=== PATIENT | female | born 1995 | race Caucasian/White ===

== ENCOUNTER 2023-07-12 16:31 | Emergency (ER) | payer MEDICAID, SELFPAY ==
[2023-07-12 17:06] VITALS: BP 116/64; PULSE 68; RESP 16; TEMP 37; O2SAT 98; BMI 34.7
[2023-07-12 18:04] LABS: IDNOW Serial# 08D9AD1C; Strep A Nucleic Acid Negative (Negative)
[2023-07-12 18:05] LABS: COVID-19 Test Negative (Negative); IDNOW Serial# BCCEAD1C
--- NOTE | 2023-07-12 19:31 | ED_ITS ---
HPI - General Adult General Chief complaint: General Medical Stated complaint: sore throat Time Seen by Provider: 07/12/23 18:57 Source: patient Mode of arrival: ambulatory History of Present Illness HPI narrative: 27-year-old female who reports cough, sore throat, nasal congestion and also reports right flank/hip pain in endorses the history of kidney infections. Related Data Allergies Allergy/AdvReac Type Severity Reaction Status Date / Time No Known Allergies Allergy Unverified 05/23/20 18:47 [No Known Allergies*] Review of Systems Review of Systems: Pertinent positives and negatives as stated in [facility] Past Medical History Source: nursing notes reviewed Social History Social History Advance Directives: No Advance Directives Information Provided: No Physical Exam ED Vital Signs: Vital Signs - 24 hr 07/12/23 17:06 Temperature 98.6 F Pulse Rate 68 Respiratory Rate 16 Blood Pressure 116/64 Pulse Oximetry 98 Oxygen Delivery Method Room Air BMI result Body Mass Index 34.7 VITAL SIGNS: Reviewed. GENERAL: Well developed, well nourished, in no acute distress. HEAD: Normocephalic/atraumatic EYES: PERRLA, EOMI EARS: Ext canals without abnormality, TMs non-bulging and non-erythematous NOSE: Nares patent bilateral OROPHARYNX: no oral lesions noted, posterior pharynx clear and non-erythematous without noted tonsillar enlargement/erythema/exudates NECK: Supple, no adenopathy LUNGS: Normal breath sounds. No adventitious sounds or accessory muscle use. SpO2<98> CARDIOVASCULAR: Regular rate and rhythm without noted murmurs ABDOMEN: Soft, non-tender, non-distended with bowel sounds. MUSCULOSKELETAL: No tenderness, deformities, or effusions noted on gross inspection. EXTREMITIES: No cyanosis, clubbing or edema. SKIN: Inspection of the skin reveals no rashes NEUROLOGIC: Alert and oriented x 4. Strength and sensation to light touch were grossly intact x 4. Medical Decision Making Medical Decision Making [facility] Narrative: 27-year-old female with history and clinical presentation, DDX: Viral pharyngitis, Viral illness (COVID, influenza), strep pharyngitis, UTI Reviewed all investigations and viral testing negative for COVID-19 and influenza, rapid strep testing is also negative. Patient unable to provide a urine sample and otherwise has been afebrile. Will provide patient with combination analgesics and discharged with strict recommendations follow-up with her primary care provider Differential Diagnosis Differential Diagnoses: The differential diagnosis associated with the presentation includes Please see the discussion above Admission/Observation Consideration of admission/observation: Escalation of care including admission/observation considered Please see the discussion above Lab Data MDM Lab Attestation statement: I reviewed the patient's lab results. Please see the discussion above Labs: Lab Results 07/12/23 07/12/23 Range/Units 17:43 19:27 COVID-19 (AKUA) Negative (Negative) COVID-19 Clin Com See Note Influenza Type A (REID) Negative (Negative) Influenza Type B (REID) Negative (Negative) Influenza A & B Note See Note S. pyogenes GrpA REID Negative (Negative) External Record Review External record reviewed: Outpatient record, Prior outpatient labs and Prior outpatient radiology Discharge Plan Discharge Clinical Impression: Viral pharyngitis Patient Disposition: Home, Self-Care Instructions: Pharyngitis (ED) Additional Instructions: 1. Recommend [id number] Tylenol/ibuprofen as needed for body aches, also recommend [id number] NyQuil or other [id number] cough suppressant. 2. Recommend follow-up with your primary care doctor in the morning for further evaluation of your urine. Return to the ER for any worsening symptoms.
[2023-07-12 19:50] LABS: IDNOW Serial# BCCEAD1C; Influenza A Negative (Negative); Influenza B2 Negative (Negative)
[2023-07-12] MEDS: Ibuprofen 400 MG TABLET PO (20:36)
[2023-07-12] MEDS: Acetaminophen 325 MG TABLET 975 MG PO (20:36)
--- NOTE | 2023-07-12 20:40 | PC.NURSE ---
medication administered per provider order. pt c/o 10 pain at this time. will reassess pain level shortly.
--- NOTE | 2023-07-12 20:49 | PC.NURSE ---
urine obtained and sent to lab by [employer] Backpack.
[2023-07-12 20:57] LABS: Appearance Urine Cloudy; Color Urine Yellow; Glucose Urine UA Negative (Negative); Leukocyte Esterase Urine Small (1+) (Negative); Nitrite Urine Negative (Negative); Specific Gravity - Urine 1.025 (1.005-1.025); UMIC TRIGGER UACC YES; Urine Blood Negative (Negative); Urine Ketones Trace mg/dL (Negative); Urine Protein Negative (Neg-Trace)
[2023-07-12 21:02] LABS: Bacteria Urine 4+ (None Seen); Hyaline Casts Urine 0-2 /LPF (0-2); RBC Urine 0-2 /HPF (0-2); Squamous Epithelial Cell Urine >20 /HPF (0-2); UACC Culture Trigger YES
== END 2023-07-12 22:08 | disposition home or self-care (01) ==
PROVIDERS: Emergency Provider Student in an Organized Health Care Education/Training Program
DX: J02.9 Acute pharyngitis, unspecified (principal); R05.9 Cough, unspecified; R10.9 Unspecified abdominal pain; Z11.52 Encounter for screening for COVID-19; Z20.822 Contact with and (suspected) exposure to COVID-19; Z79.899 Other long term (current) drug therapy
CPT/HCPCS: 81001; 87086; 87088; 87502; 87635; 87651; 99283

== ENCOUNTER 2024-01-04 20:24 | Emergency (ER) | payer MEDICAID, SELFPAY ==
[2024-01-04 22:12] VITALS: BP 137/88; PULSE 52; RESP 18; TEMP 37.3; O2SAT 100; BMI 34.7
[2024-01-04] MEDS: Ondansetron ODT 4 MG TAB.RAPDIS TRANSLINGU (22:21)
--- NOTE | 2024-01-04 22:21 | PC.NURSE ---
pt medicated in triage
[2024-01-04 22:32] LABS: MANUAL DIFF FLAG NO
[2024-01-04 22:34] LABS: Basophils Absolute Auto 0.1 X10*3/uL (0.0-0.2); Basophils Percent Auto 0.3 % (0-2); Hematocrit 46.5 % (37.0-47.0); Hemoglobin 16.1 g/dl (12.0-16.0); Imm Gran Abs Auto 0.07 X10*3/uL (0.00-0.03); Imm Gran Pct Auto 0.4 % (0.0-0.4); Lymphocytes Absolute Auto 1.4 X10*3/uL (1.2-4.9); Lymphocytes Percent Auto 8.2 % (20-40); Mean Corpuscular HGB Conc 34.6 g/dl (31.0-35.0); Mean Corpuscular Hemoglobin 30.9 pg (27.0-33.0); Mean Corpuscular Volume 89.3 fL (80.0-98.0); Mean Platelet Volume 12.3 fL (9.4-12.3); Monocytes Absolute Auto 0.3 X10*3/uL (0.1-1.2); Monocytes Percent Auto 1.9 % (2-11); Neutrophils Absolute Auto 15.6 x10*3/uL (2.0-8.3); Neutrophils Percent Auto 89.2 % (45-73); Platelet Count 217 X10*3/uL (160-400); Red Blood Count 5.21 X10*6/uL (4.20-5.50); Red Cell Distribution Width 12.1 % (11.0-16.0); White Blood Count 17.5 X10*3/uL (4.8-10.8)
[2024-01-04 22:47] LABS: COVID-19 Test Negative (Negative); IDNOW Serial# 58CA691E
[2024-01-04 22:49] LABS: Alanine Aminotransferase 11 U/L (0-31); Albumin Level 4.8 g/dL (3.5-5.0); Alkaline Phosphatase 111 U/L (39-117); Anion Gap 19 (12-20); Aspartate Amino Transferase 14 U/L (5-31); Bilirubin Total 0.5 mg/dL (0.0-1.0); Blood Urea Nitrogen 7 mg/dL (9-16); Calcium 9.8 mg/dL (8.4-10.2); Carbon Dioxide 22 mmol/L (22-29); Chloride 104 mmol/L (96-108); Creatinine Clr Calc Pharmacy 119.1; Estimated Glomerular Filt Rate > 60; Glucose Random 114 mg/dL (60-115); Lipase 10 U/L (8-78); Potassium 3.8 mmol/L (3.3-5.1); Sodium 141 mmol/L (135-145); Total Protein 8.1 g/dL (6.5-8.0)
[2024-01-04 22:56] LABS: IDNOW Serial# 08D9AD1C; Influenza A Negative (Negative); Influenza B2 Negative (Negative)
[2024-01-05 01:55] VITALS: BP 111/62; PULSE 52; RESP 18; TEMP 36.8; O2SAT 96
--- NOTE | 2024-01-05 03:25 | PC.NURSE ---
Pt ca&ox4, no signs of distress. Pt resting comfortably in bed. Pt reports n/v/d since tues @ 0900 and abdm pain 03/15. Plan of care ongoing.
--- NOTE | 2024-01-05 03:48 | ED_ITS ---
HPI - Nausea/Vomiting/Diarrhea General Chief complaint: Nausea/Vomiting/Diarrhea Stated complaint: food poisoning? Time Seen by Provider: 01/05/24 03:33 Source: patient Mode of arrival: ambulatory Limitations: no limitations History of Present Illness HPI Narrative: 28-year-old female with no significant past medical history who presents emergency department for evaluation of nausea, vomiting, diarrhea and abdominal pain with symptoms starting at 09:00 hours yesterday. Patient states that the night before she ate fried shrimp. She states she was the only person that ate the shrimp. She states that she then had at least 10 episodes of vomiting and 10 episodes of diarrhea. She states she did vomit up blood which concerned her so she came to the emergency department for evaluation. She states that she is having pain located diffusely throughout her abdomen and the pain is 7/10 at its worst. She denied fever but did have chills. She states she has a sore throat with secondary to vomiting. She feels short of breath. She denied myalgias arthralgias. Related Data Previous Rx's ?Medication ?Instructions ?Recorded acetaminophen 500 mg tablet 1,000 mg (2 x 500 mg) PO Q6H PRN 01/05/24 (Tylenol Extra Strength) fever or pain #20 tabs ondansetron 4 mg disintegrating 4 mg PO Q6-8H PRN nausea and 01/05/24 tablet vomiting #14 tabs Allergies Allergy/AdvReac Type Severity Reaction Status Date / Time No Known Allergies Allergy Verified 01/04/24 22:15 [No Known Allergies*] Review of Systems 2 Review of Systems: Yes all other systems are reviewed and are negative [facility] Past Medical History [facility] Narrative: Past medical history none: Surgical history: None. Social history: The patient does smoke cigarettes. She denies alcohol use. She smokes marijuana 2-3 times daily. Social History Social History Smoked in Last 30 Days: Yes Use of substances other than those prescribed or required for medical reasons: Yes Substance Use Type: Marijuana Advance Directives: No Advance Directives Information Provided: No Do you have a plan to hurt others: No Plan Physical Exam 2 Vital Signs: Vital Signs: Last Vital Signs Temp 98.3 F 01/05/24 04:19 Pulse 56 01/05/24 04:19 Resp 14 01/05/24 04:19 BP 119/68 01/05/24 04:19 Pulse Ox 100 01/05/24 04:19 O2 Del Method Room Air 01/05/24 04:19 BMI result Body Mass Index 34.7 Vital signs revealed bradycardia with a heart rate of 56 otherwise were unremarkable Exam: General: Awake, alert in no distress Head: Normocephalic, atraumatic EENT: PERRL, Lids normal, sclera normal, conjunctiva normal, nose normal , ears normal, throat without erythema or exudates Neck: Supple, no adenopathy Lung: breath sounds symmetric, no wheezing, rales or rhonchi Chest: symmetric movement, nontender Heart: regular rate and rhythm, normal S1, S2 no murmurs or rubs Abdomen: soft, mild to moderate diffuse tenderness, nondistended, normal bowel sounds Back: no vertebral tenderness, no CVAT Extremities: no deformities, moves all extremities symmetrically Neuro: Awake, alert, oriented, normal speech, cranial nerves intact, moves all extremities symmetrically Psych: Pleasant, cooperative Medications Administered Discontinued Medications Generic Name Dose Route Start Last Admin Trade Name Freq PRN Reason Stop Dose Admin Diphenhydramine HCl 50 mg 01/05/24 03:48 01/05/24 04:15 Diphenhydramine Hcl 50 Mg/Ml Vial IVPUSH 01/05/24 03:49 50 mg ONCE STA Administration Sodium Chloride 1,000 mls @ 999 mls/hr 01/05/24 03:48 01/05/24 04:17 Ns IV 01/05/24 04:48 999 mls/hr .Q1H1M STA Administration Ketorolac Tromethamine 15 mg 01/05/24 03:48 01/05/24 04:15 Ketorolac Tromethamine 15 Mg/Ml Vial IVPUSH 01/05/24 03:49 15 mg ONCE STA Administration Metoclopramide HCl 10 mg 01/05/24 03:49 01/05/24 04:15 Metoclopramide Hcl 10 Mg/2 Ml Vial IVPUSH 01/05/24 03:50 10 mg ONCE STA Administration Ondansetron HCl 4 mg 01/04/24 22:18 01/04/24 22:21 Ondansetron Odt 4 Mg Tab.Rapdis TRANSLINGU 01/04/24 22:19 4 mg ONCE ONE Administration Medical Decision Making Medical Decision Making [facility] Narrative: 28-year-old female with no significant past medical history who presents emergency department for evaluation of nausea, vomiting, diarrhea and abdominal pain with symptoms starting at 09:00 hours yesterday. Patient is concerned that she may have food poisoning since she had fried shrimp the night before, no other people ate the shrimp except for her. Patient had multiple episodes of vomiting and diarrhea and did vomit bright red blood. She had chills but no fever. Vital signs revealed bradycardia otherwise were unremarkable. Differential diagnosis: ?Includes but is not limited to food poisoning, viral syndrome, pancreatitis, appendicitis, anemia, electrolyte abnormality Following evaluation was ordered: CBC, CMP, lipase, urinalysis, urine test, influenza, COVID-19, Patient was initially treated with the following: Toradol 15 mg IV, Reglan 10 mg IV, Benadryl 50 mg IV, Zofran 4 mg ODT, normal saline x1 L IV Course: 06:31 My independent interpretation of the patient's laboratory evaluation is as follows: Elevated WBCs 74857, no anemia with an H&H of 16 and 46.5. LFTs were normal. Lipase was normal. COVID-19 influenza were negative. Urinalysis revealed an elevated specific gravity, positive protein. Microscopic revealed 0-2 RBCs, 0-5 WBCs greater than 20 squamous epithelial cells, 4+ bacteria-this is a non clean catch specimen. test was negative. COVID-19 and influenza tests were negative. Patient states that she did get some improvement of her pain and nausea with the above treatment however she still not feeling well. Therefore she was given morphine 4 mg IV and Zofran 4 mg IV. If the patient improves, she will be discharged home with prescription for Zofran 4 mg ODT every 6 hours and Tylenol 1000 mg every 6 hours as needed for pain and fever. She states she is ibuprofen at home that she can take. She was given printed and verbal instructions and discharged home Admission/Observation Consideration of admission/observation: Escalation of care including admission/observation considered Lab Data [facility] Lab Attestation statement: I reviewed the patient's lab results. 01/04/24 22:25 01/04/24 22:25 Labs: Lab Results 01/04/24 01/05/24 01/05/24 Range/Units 22:25 04:23 04:29 WBC 17.5 H (4.8-10.8) X10*3/uL RBC 5.21 (4.20-5.50) X10*6/uL Hgb 16.1 H (12.0-16.0) g/dl Hct 46.5 (37.0-47.0) % MCV 89.3 (80.0-98.0) fL MCH 30.9 (27.0-33.0) pg MCHC 34.6 (31.0-35.0) g/dl RDW 12.1 (11.0-16.0) % Plt Count 217 (160-400) X10*3/uL MPV 12.3 (9.4-12.3) fL Immature Gran % (Auto) 0.4 (0.0-0.4) % Neut % (Auto) 89.2 H (45-73) % Lymph % (Auto) 8.2 L (20-40) % Cole % (Auto) 1.9 L (2-11) % Eos % (Auto) 0.0 (0-4) % Baso % (Auto) 0.3 (0-2) % Lymph # (Auto) 1.4 (1.2-4.9) X10*3/uL Cole # (Auto) 0.3 (0.1-1.2) X10*3/uL Eos # (Auto) 0.0 (0.0-0.4) X10*3/uL Baso # (Auto) 0.1 (0.0-0.2) X10*3/uL Abs Immat Gran (auto) 0.07 H (0.00-0.03) X10*3/uL Absolute Neuts (auto) 15.6 H (2.0-8.3) x10*3/uL Absolute Nucleated RBC 0.000 (0.0-0.012) X10*3/uL Nucleated RBC % (auto) 0.0 (0.0-0.2) /100WBC Sodium 141 (135-145) mmol/L Potassium 3.8 (3.3-5.1) mmol/L Chloride 104 (96-108) mmol/L Carbon Dioxide 22 (22-29) mmol/L Anion Gap 19 (12-20) BUN 7 L (9-16) mg/dL Creatinine 0.71 (0.5-1.4) mg/dL Estim Creat Clear Calc 119.1 Estimated GFR > 60 Random Glucose 114 (60-115) mg/dL Calcium 9.8 (8.4-10.2) mg/dL Total Bilirubin 0.5 (0.0-1.0) mg/dL AST 14 (5-31) U/L ALT 11 (0-31) U/L Alkaline Phosphatase 111 (39-117) U/L Total Protein 8.1 H (6.5-8.0) g/dL Albumin 4.8 (3.5-5.0) g/dL Lipase 10 (8-78) U/L Urine Color Yellow Urine Appearance Cloudy Urine pH 5.5 (5.0-9.0) Ur Specific Dexter >= 1.030 H (1.005-1.025) Urine Protein 100 (2+) H (Neg-Trace) mg/dL Urine Glucose (UA) Negative (Negative) mg/dL Urine Ketones >=160 (Negative) mg/dL Urine Blood Negative (Negative) Urine Nitrite Negative (Negative) Ur Leukocyte Esterase Negative (Negative) Urine RBC 0-2 (0-2) /HPF Urine WBC 0-5 (0-5) /HPF Ur Squamous Epith Cells >20 (0-2) /HPF Urine Bacteria 4+ (None Seen) Hyaline Casts 0-2 (0-2) /LPF Urine Test NEGATIVE (NEGATIVE) COVID-19 (AKUA) Negative (Negative) COVID-19 Clin Com See Note Influenza Type A (REID) Negative (Negative) Influenza Type B (REID) Negative (Negative) Influenza A & B Note See Note Prescription Management I considered prescription management with: Pain Medication and Other (Antiemetics) Discharge Plan Discharge Clinical Impression: Gastroenteritis Nausea & vomiting Qualifiers: Vomiting type: unspecified Qualified Code(s): R11.2 - Nausea with vomiting, unspecified Diarrhea Qualifiers: Diarrhea type: unspecified type Qualified Code(s): R19.7 - Diarrhea, unspecified Patient Disposition: Home, Self-Care Instructions: Gastroenteritis (ED) Additional Instructions: Your blood work did reveal an elevated white blood cell count otherwise your tests were unremarkable. Your COVID-19, RSV and influenza tests were negative. Your symptoms could be either caused by food poisoning or a viral infection that is causing you to have abdominal pain, nausea, vomiting and diarrhea. Take Zofran ODT 4 mg pills, 1 pill dissolved in your mouth every 8 hours as needed for nausea and vomiting. Take ibuprofen 200 mg pills, 2 pills every 6 hours as needed for pain or fever. Take Tylenol (acetaminophen) 500 mg pills, 2 pills every 6 hours as needed for pain or fever. For the next 24 hours, stay on a CECE diet (bananas, rice, applesauce, tea and toast). Follow-up with your doctor in 2 days. Please return to the emergency department if your symptoms get worse or if you develop any symptoms that are concerning to you. Please see the work note Prescriptions: New acetaminophen [Tylenol Extra Strength] 500 mg tablet 1,000 mg PO Q6H PRN (Reason: fever or pain) Qty: 20 0RF ondansetron 4 mg tablet,disintegrating 4 mg PO Q6-8H PRN (Reason: nausea and vomiting) Qty: 14 0RF Stand Alone Forms: Work/School Release Print Language: Hebrew
[2024-01-05] MEDS: diphenhydrAMINE HCL 50 MG/ML VIAL IVPUSH (04:15)
[2024-01-05] MEDS: Ketorolac Tromethamine 15 MG/ML VIAL IVPUSH (04:15)
[2024-01-05] MEDS: Metoclopramide HCl 10 MG/2 ML VIAL IVPUSH (04:15)
[2024-01-05] MEDS: 0.9 % Sodium Chloride 1,000 ML 999 ML IV ×2 (04:17→08:39)
[2024-01-05 04:19] VITALS: BP 119/68; PULSE 56; RESP 14; TEMP 36.8; O2SAT 100
--- NOTE | 2024-01-05 04:20 | PC.NURSE ---
Pt ca&ox4, no signs of distress. Pt ambulates to the restroom with a steady gait. UA collected. IV access obtained. Pt medicated per nov. Plan of care ongoing.
[2024-01-05 04:36] LABS: Appearance Urine Cloudy; Color Urine Yellow; Glucose Urine UA Negative (Negative); Leukocyte Esterase Urine Negative (Negative); Nitrite Urine Negative (Negative); PH 5.5 (5.0-9.0); Specific Gravity - Urine >= 1.030 (1.005-1.025); UMIC TRIGGER UACC YES; Urine Blood Negative (Negative); Urine Ketones >=160 mg/dL (Negative); Urine Protein 100 (2+) mg/dL (Neg-Trace)
[2024-01-05 04:38] LABS: UPreg QC Valid YES; Urine Pregnancy NEGATIVE (NEGATIVE)
[2024-01-05 04:41] LABS: Bacteria Urine 4+ (None Seen); Hyaline Casts Urine 0-2 /LPF (0-2); RBC Urine 0-2 /HPF (0-2); Squamous Epithelial Cell Urine >20 /HPF (0-2); WBC Urine 0-5 /HPF (0-5)
[2024-01-05 06:27] VITALS: BP 100/53; PULSE 60; RESP 14; TEMP 37.1; O2SAT 98
--- NOTE | 2024-01-05 06:33 | PC.NURSE ---
Pt reports pain 6/10 Pts ca&ox4, sitting in bed. Plan of care ongoing.
--- NOTE | 2024-01-05 06:39 | PC.NURSE ---
Provider aware of pts B/P. Provider to put in med orders for pain and nausea. Plan of care ongoing.
[2024-01-05] MEDS: ondansetron HCL 4 MG/2 ML VIAL IVPUSH (06:44)
[2024-01-05] MEDS: Morphine Sulfate 4 MG/ML CARTRIDGE IVPUSH (06:45)
--- NOTE | 2024-01-05 06:48 | PC.NURSE ---
Pt medicated per nov. Plan of care ongoing.
[2024-01-05 11:11] VITALS: BP 100/54; PULSE 104; RESP 16; TEMP 36.9; O2SAT 97
[2024-01-05 14:07] VITALS: BP 93/46; PULSE 63; RESP 16; TEMP 37; O2SAT 99
== END 2024-01-05 14:07 | disposition home or self-care (01) ==
PROVIDERS: Emergency Provider Emergency Medicine Emergency Medical Services
DX: K52.9 Noninfective gastroenteritis and colitis, unspecified (principal); Z11.52 Encounter for screening for COVID-19
CPT/HCPCS: 80053; 81001; 81025; 83690; 85025; 87502; 87635; 96361; 96374; 96375; 99285; J1200; J1885; J2270; J2405; J2765

== ENCOUNTER 2024-01-26 01:33 | Emergency (ER) | payer SELFPAY ==
--- NOTE | ~2024-01-26 | XR_ITS ---
EXAMINATION: XR KNEE, LEFT CLINICAL INFORMATION: Pain. COMPARISON: None available. TECHNIQUE: Four views of the left knee. FINDINGS: No fracture or joint effusion. Alignment is anatomic. Joint spaces are maintained. No abnormal soft tissue calcification. XR/XR knee LT 4V IMPRESSION: No significant abnormality identified.
[2024-01-26 02:07] VITALS: BP 120/79; PULSE 82; RESP 18; TEMP 36.7; O2SAT 99; BMI 34.7
[2024-01-26 04:27] VITALS: BP 115/79; PULSE 71; RESP 16; TEMP 36.6; O2SAT 99
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
[2024-01-26 08:15] VITALS: BP 115/52; PULSE 87; RESP 16; TEMP 36.6; O2SAT 96
== END 2024-01-26 08:15 | disposition home or self-care (01) ==
PROVIDERS: Emergency Provider Internal Medicine
DX: S83.92XA Sprain of unspecified site of left knee, initial encounter (principal); W10.9XXA Fall (on) (from) unspecified stairs and steps, initial encounter; Y93.9 Activity, unspecified; Y92.039 Unspecified place in apartment as the place of occurrence of the external cause; Y99.9 Unspecified external cause status; M25.562 Pain in left knee
CPT/HCPCS: 73564; 99282; 99283

== ENCOUNTER 2024-02-02 07:52 | Outpatient (AMB) | payer SELFPAY ==
[2024-02-02 07:53] VITALS: BMI 34.7
--- NOTE | 2024-02-02 07:53 | A.OFFVIS_ITS ---
Vital Signs 02/02/24 07:53 Height 5 ft 2 in Weight 190 lb BMI 34.7 Intake Visit Reasons: [employer]-left knee injury-DOI 01/25/24 Intake Note: Betsy is a 28 year old female who presents as a new patient who presents with Left knee pain and giving way. The patient states that several weeks ago she fell down stairs and twisted her left knee while walking her pit bull. Since that time she has had putting all of her weight on her left lower extremity in spite of wearing a knee immobilizer. She states that when she takes the immobilizer off it feels like her knee is going to give out. She has taken Tylenol and ibuprofen which gave her minimal relief. She denies any discomfort or symptoms of instability prior to this injury. Allergies No Known Allergies [No Known Allergies*] Allergy (Verified 02/02/24 08:02) Medication List - Last Reconciled 02/02/24 by Musa Dobson MD acetaminophen (Tylenol Extra Strength) 1,000 mg (2 x 500 mg) PO Q6H PRN PFSH Social History Patient Tobacco Use Status: Current everyday Tobacco user Substance Use Type: Marijuana Current occupational status: employed Current occupation: office work Physical Exam Vital Signs: BMI result Body Mass Index 34.7 Const Other: Well-nourished well-developed very friendly female awake alert and oriented x3 in no acute distress Extrem Other: Bilateral lower extremity examination shows good capillary refill, no skin lesions noted, normal sensation light touch Left knee examination shows a mild effusion, minimal crepitus with range of motion, positive Chelly's test Results Reviewed Results Reviewed: X-rays of the patient's left knee show no significant bony abnormalities Assessment & Plan Assessment & Plan (1) Left knee pain: Code(s): M25.562 - Pain in left knee Category: Medical Plan Ms. Wright presents with progressively worsening left knee pain and instability possibly due to tearing of her anterior cruciate ligament. Thus, I will send her for an MRI of her left knee for further evaluation. I will see her back once the MRI completed to discuss the findings and treatment options. She will continue using crutches and her knee immobilizer in the meantime. I spent 21 minutes in reviewing the patient's records and imaging studies, seeing the patient and documenting in the medical record. Orders: Orders MR knee LT wo con 02/02/24 M25.562 - Pain in left knee Medications: Discontinued ondansetron Discontinued Reason: Patient no longer taking 4 mg PO Q6-8H PRN 14 tabs 0RF nausea and vomiting Coding Level of Care Code New Pt Level 3 (86339) Diagnoses Left knee pain M25.562
== END 2024-02-02 08:26 | disposition home or self-care (01) ==
PROVIDERS: Visit Provider Orthopaedic Surgery
DX: M25.562 Pain in left knee (principal)
CPT/HCPCS: 99203

== ENCOUNTER → 2024-02-02 07:52 | Outpatient (BNVA) | payer OTHER, SELFPAY | PROVIDERS: Visit Provider Orthopaedic Surgery | DX: M25.562 Pain in left knee (principal) | CPT/HCPCS: 99202 ==

== ENCOUNTER 2025-04-21 18:09 | Emergency (ER) | payer SELFPAY ==
[2025-04-21 18:27] VITALS: BP 116/81; PULSE 85; RESP 16; TEMP 36.3; O2SAT 98; BMI 23.9
--- NOTE | 2025-04-21 18:27 | ED_ITS ---
HPI - General Adult General Chief complaint: Nausea/Vomiting/Diarrhea Stated complaint: dehydrated, vomiting Time Seen by Provider: 04/21/25 20:58 Source: patient and old records reviewed Mode of arrival: ambulatory Limitations: no limitations History of Present Illness ED Provider: FUAD HPI narrative: 29 yo female with no sig PMH no prior surgeries here with 2 days of n/v and no diarrhea. NO fevers, no urinary symptoms. Cannot think of precipitating event. She states her whole abdomen hurts from throwing up. She has not meds at home for it. She doens't usually get sick like this. complaint: n/v Onset (ago): day(s) (2) Location: abdomen Radiation: non-radiation Severity: mild Quality: aching Pain Consistency: intermittent Relieving factors: none Exacerbating factors: other (vomiting) Associated symptoms: malaise and nausea/vomiting Treatments prior to arrival: none Related Data Previous Rx's ?Medication ?Instructions ?Recorded acetaminophen 500 mg tablet 1,000 mg (2 x 500 mg) PO Q 6H PRN 01/05/24 (Tylenol Extra Strength) fever or pain #20 tabs ondansetron 4 mg disintegrating 4 mg PO Q8H PRN nausea and 04/21/25 tablet vomiting #20 tabs Allergies Allergy/AdvReac Type Severity Reaction Status Date / Time No Known Allergies (No Known Allergy Verified 04/21/25 18:29 Allergies*) Review of Systems 2 Review of Systems: Constitutional : No Weight loss, No Fever, No Chills ENT/Mouth : No sore throat, No Rhinorrhea Eyes: No Swelling, No Redness Cardiovascular : No Chest Pain, No SOB, NoEdema Respiratory : No Cough, No Sputum, No Wheezing Gastrointestinal : Positive Nausea, Positive Vomiting, no Diarrhea, positive abdominal Pain, No Hematochezia, No Melena Genitourinary : No Dysuria, No Urinary Frequency, No Hematuria, No Urgency Musculoskeletal : No joint pain, No Myalgias, No Joint Swelling Skin : No Skin Lesions, No rash Neuro : No Weakness, No Numbness, No Dizziness, No Headache All other systems reviewed and are negative. [facility] Past Medical History Attestation statement: The following information was validated with the patient. Source: old records reviewed Medical History (Updated 04/21/25 @ 21:24 by Airam Tomlinson DO) Left knee pain Social History Social History Patient Tobacco Use Status: Current everyday Tobacco user Substance Use Type: Marijuana Advance Directives: No Advance Directives Information Provided: No Current occupational status: employed Current occupation: office work Physical Exam ED Vital Signs: Vital Signs - 24 hr 04/21/25 18:27 Temperature 97.4 F Pulse Rate 85 Respiratory Rate 16 Blood Pressure 116/81 Pulse Oximetry 98 Oxygen Delivery Method Room Air BMI result Body Mass Index 23.9 Appearance: Alert. Oriented X3. No acute distress. Eyes: Pupils equal, round and reactive to light. ENT: Pharynx normal. Neck: Normal inspection. Neck supple. CVS: Normal heart rate and rhythm. Pulses normal. Respiratory: No respiratory distress. Breath sounds normal. Abdomen: Soft and mild diffuse ttp no rebound or guarding no localized pain Skin: Skin warm and dry. Normal skin color. Extremities: No lower extremity edema. No calf ttp Neuro: Oriented X 3. No motor deficit. No sensory deficit. CN2-12 intact Course Course Course Narrative: Rowena Novoapk LEAD DATA ENTRY OPERATOR 04/21 1830 This is a rapid medical exam. Deferred additional HPI, ROS, PE to primary provider. 29yo female with no known medical history here with vomiting since last evening. No abdominal pain, diarrhea. Currently on her menses. Will obtain labs, UA, urine preg, zofran SL VSS Medications Administered Discontinued Medications Generic Name Dose Route Start Last Admin Trade Name Freq PRN Reason Stop Dose Admin Diphenhydramine HCl 25 mg 04/21/25 21:12 04/21/25 21:22 Diphenhydramine Hcl 50 Mg/Ml Vial IVPUSH 04/21/25 21:13 25 mg ONCE ONE Administration Lactated Ringer's 1,000 mls @ 999 mls/hr 04/21/25 21:12 04/21/25 21:22 Lr IV 04/21/25 22:12 999 mls/hr .Q1H1M ONE Administration Ondansetron HCl 4 mg 04/21/25 18:29 04/21/25 18:31 Ondansetron Odt 4 Mg Tab.Rapdis TRANSLINGU 04/21/25 18:30 4 mg ONCE ONE Administration Prochlorperazine Edisylate 10 mg 04/21/25 21:12 04/21/25 21:22 Prochlorperazine Edisylate 10 Mg/2 Ml Vial IVPUSH 04/21/25 21:13 10 mg ONCE ONE Administration Medical Decision Making Medical Decision Making [facility] Narrative: 29 yo female with no sig PMH here with c/o n/v x 2 days no fevers and only mild diffuse pain with vomiting at this time abrupt onset seems more viral vs THC induced. Will need labs, IVF and supportive medications. She has no localized pain to suggest appy or biliary colic Differential Diagnosis Differential Diagnoses: The differential diagnosis associated with the presentation includes dehydration, , viral syndrome, THC cyclical vomiting Admission/Observation Consideration of admission/observation: Escalation of care including admission/observation considered feels better tolerating PO stable for DC Lab Data [facility] Lab Attestation statement: I reviewed the patient's lab results. hx of elevated wbc in past suspect due to vomiting 04/21/25 19:29 04/21/25 19:29 Labs: Lab Results 04/21/25 04/21/25 Range/Units 19:29 21:07 WBC 16.3 H (4.8-10.8) X10*3/uL RBC 4.70 (4.20-5.50) X10*6/uL Hgb 14.7 (12.0-16.0) g/dl Hct 42.4 (37.0-47.0) % MCV 90.2 (80.0-98.0) fL MCH 31.3 (27.0-33.0) pg MCHC 34.7 (31.0-35.0) g/dl RDW 12.1 (11.0-16.0) % Plt Count 201 (160-400) X10*3/uL MPV 10.6 (9.4-12.3) fL Immature Gran % (Auto) 0.3 (0.0-0.4) % Neut % (Auto) 73.6 H (45-73) % Lymph % (Auto) 17.7 L (20-40) % [place] % (Auto) 7.8 (2-11) % Eos % (Auto) 0.1 (0-4) % Baso % (Auto) 0.5 (0-2) % Lymph # (Auto) 2.9 (1.2-4.9) X10*3/uL [place] # (Auto) 1.3 H (0.1-1.2) X10*3/uL Eos # (Auto) 0.0 (0.0-0.4) X10*3/uL Baso # (Auto) 0.1 (0.0-0.2) X10*3/uL Abs Immat Gran (auto) 0.05 H (0.00-0.03) X10*3/uL Absolute Neuts (auto) 12.0 H (2.0-8.3) x10*3/uL Absolute Nucleated RBC 0.000 (0.0-0.012) X10*3/uL Nucleated RBC % (auto) 0.0 (0.0-0.2) /100WBC Sodium 144 (135-145) mmol/L Potassium 4.0 (3.3-5.1) mmol/L Chloride 103 (96-108) mmol/L Carbon Dioxide 30 H (22-29) mmol/L Anion Gap 15 (12-20) BUN 11 (9-16) mg/dL Creatinine 0.75 (0.5-1.4) mg/dL Estim Creat Clear Calc 90.7 Estimated GFR > 60 Random Glucose 87 (60-115) mg/dL Calcium 8.8 D (8.4-10.2) mg/dL Total Bilirubin 0.3 (0.0-1.0) mg/dL Direct Bilirubin 0.2 (0.0-0.5) mg/dL AST 20 (5-31) U/L ALT 17 (0-31) U/L Alkaline Phosphatase 117 (39-117) U/L Total Protein 6.7 (6.5-8.0) g/dL Albumin 4.2 (3.5-5.0) g/dL Lipase 13 (8-78) U/L Beta HCG, Quant < 2 mIU/mL Urine Color Yellow Urine Appearance Clear Urine pH 7.0 (5.0-9.0) Ur Specific Bishop >= 1.030 H (1.005-1.025) Urine Protein Trace (Neg-Trace) mg/dL Urine Glucose (UA) Negative (Negative) mg/dL Urine Ketones Negative (Negative) mg/dL Urine Blood Small (1+) H (Negative) Urine Nitrite Negative (Negative) Ur Leukocyte Esterase Small (1+) H (Negative) Urine RBC 0-2 (0-2) /HPF Urine WBC 6-10 H (0-5) /HPF Ur Squamous Epith Cells 6-10 (0-2) /HPF Urine Bacteria 2+ (None Seen) Hyaline Casts 0-2 (0-2) /LPF Urine Test NEGATIVE (NEGATIVE) Influenza Type A (PCR) NEGATIVE (Negative) Influenza Type B (PCR) NEGATIVE (Negative) RSV RNA Qual (PCR) NEGATIVE (Negative) SARS-CoV-2 RNA (RT-PCR) NEGATIVE (Negative) Independent Historian Clinical information obtained from an independent historian. History obtained from or confirmed by: Friend External Record Review External record reviewed: Outpatient record Prescription Management I considered prescription management with: Other Discharge Plan Discharge Clinical Impression: Nausea & vomiting Qualifiers: Vomiting type: unspecified Qualified Code(s): R11.2 - Nausea with vomiting, unspecified Patient Disposition: Home, Self-Care Instructions: Acute Nausea and Vomiting (ED) Additional Instructions: your labs are reassuring you were mildly dehydrated for the next two days push lots of fluids and very bland diet for 48 hours return for any worsening symptoms or concerns. Prescriptions: New ondansetron 4 mg tablet,disintegrating 4 mg PO Q8H PRN (Reason: nausea and vomiting) Qty: 20 0RF No Action acetaminophen [Tylenol Extra Strength] 500 mg tablet 1,000 mg PO Q6H PRN (Reason: fever or pain) Qty: 20 0RF Stand Alone Forms: Work/School Release Print Language: Yemeni
[2025-04-21 19:36] LABS: MANUAL DIFF FLAG NO
[2025-04-21 19:37] LABS: Hematocrit 42.4 % (37.0-47.0); Hemoglobin 14.7 g/dl (12.0-16.0); Imm Gran Abs Auto 0.05 X10*3/uL (0.00-0.03); Imm Gran Pct Auto 0.3 % (0.0-0.4); Lymphocytes Absolute Auto 2.9 X10*3/uL (1.2-4.9); Mean Corpuscular HGB Conc 34.7 g/dl (31.0-35.0); Mean Corpuscular Hemoglobin 31.3 pg (27.0-33.0); Mean Corpuscular Volume 90.2 fL (80.0-98.0); NRBC Abs Auto 0.000 X10*3/uL (0.0-0.012); NRBC Pct Auto 0.0 /100WBC (0.0-0.2); Platelet Count 201 X10*3/uL (160-400); Red Blood Count 4.70 X10*6/uL (4.20-5.50); White Blood Count 16.3 X10*3/uL (4.8-10.8)
[2025-04-21 19:49] LABS: Alanine Aminotransferase 17 U/L (0-31); Albumin Level 4.2 g/dL (3.5-5.0); Alkaline Phosphatase 117 U/L (39-117); Anion Gap 15 (12-20); Aspartate Amino Transferase 20 U/L (5-31); Blood Urea Nitrogen 11 mg/dL (9-16); Calcium 8.8 mg/dL (8.4-10.2); Carbon Dioxide 30 mmol/L (22-29); Chloride 103 mmol/L (96-108); Creatinine Clr Calc Pharmacy 90.7; Estimated Glomerular Filt Rate > 60; Potassium 4.0 mmol/L (3.3-5.1); Sodium 144 mmol/L (135-145); Total Protein 6.7 g/dL (6.5-8.0)
[2025-04-21 20:13] LABS: Resp Syncy Virus RNA Qual PCR NEGATIVE (Negative); SARS COV2 PCR INHOUSE NEGATIVE (Negative)
--- NOTE | 2025-04-21 21:00 | PC.NURSE ---
pt given urine cup at this time and ambulatory to bathroom with steady gait
[2025-04-21] MEDS: Lactated Ringers 1,000 ML 999 ML IV (21:22)
[2025-04-21 21:32] LABS: Appearance Urine Clear; Glucose Urine UA Negative (Negative); PH 7.0 (5.0-9.0); Specific Gravity - Urine >= 1.030 (1.005-1.025); UMIC TRIGGER UACC YES
[2025-04-21 21:35] LABS: UPreg QC Valid YES
[2025-04-21 21:52] LABS: Lipase 13 U/L (8-78)
[2025-04-21 21:53] LABS: UACC Culture Trigger YES
[2025-04-21 23:00] VITALS: BP 96/61; PULSE 52; RESP 16; TEMP 36.8; O2SAT 95
[2025-04-21 23:04] VITALS: BP 96/61; PULSE 52; RESP 16; TEMP 36.8; O2SAT 95
== END 2025-04-21 23:00 | disposition home or self-care (01) ==
PROVIDERS: Nurse Practitioner Family; Emergency Provider Emergency Medicine
DX: R11.2 Nausea with vomiting, unspecified (principal); E86.0 Dehydration; R10.9 Unspecified abdominal pain; F17.210 Nicotine dependence, cigarettes, uncomplicated; F12.90 Cannabis use, unspecified, uncomplicated
CPT/HCPCS: 80048; 80076; 81001; 81025; 83690; 84702; 85025; 87086; 87637; 96361; 96374; 96375; 99284; J0737; J1200; J7120